=== PATIENT | male | born 1955 | race Two or more races ===

== ENCOUNTER 2025-05-13 15:22 | Emergency (ER) | payer MEDICARE, OTHER ==
[~2025-05-13] VITALS: Ht 182.9 cm; Wt 79.4 kg
[2025-05-13 17:28] LABS: PLATELET COUNT (AUTO) 412 K/uL (150-450); RED BLOOD CELL COUNT(AUTO) 5.01 MIL/uL (4.5-6.0); RED CELL DISTRIBUTION WIDTH 13.0 % (11.5-15.0); WHITE BLOOD COUNT (AUTO) 11.7 K/uL (4.3-11.0)
[2025-05-13 17:46] LABS: LACTIC ACID 2.6 mmol/L (0.4-2.0)
[2025-05-13 17:55] LABS: ASPARTATE AMINOTRANSFERASE 11 U/L (15-37); CALCIUM, SERUM 9.6 mg/dL (8.5-10.1); CREATININE 1.0 mg/dL (0.6-1.3); SODIUM SERUM 129 mmol/L (136-145); TOTAL PROTEIN, SERUM 8.2 g/dL (6.4-8.2); UREA NITROGEN, BLOOD 8 mg/dL (7-18)
[2025-05-13] MEDS: PIPERACILLIN /TAZOBACTAM 3.375 G in IV D5W 50 ML IV ONE (18:40)
[2025-05-13] MEDS: VANCOMYCIN 1 GM in IV D5W 250 ML IV ONE (19:00)
[2025-05-13 19:04] LABS: INR 0.88 (0.91-1.10)
[2025-05-13] MEDS ORDERED: HEPARIN INFUSION/D5W 500 ML IV ONE (19:17)
[2025-05-13] MEDS ORDERED: HEPARIN SODIUM, PORCINE 5000 UNITS/1 ML VIAL ONE (19:17)
[2025-05-13] MEDS ORDERED: ONDANSETRON HCL/PF 4 MG/2 ML VIAL ONE (19:17)
[2025-05-13] MEDS ORDERED: MORPHINE SULFATE INJ 4 MG/ML DISP.SYRIN ONE (19:17)
[2025-05-13] MEDS: MORPHINE SULFATE INJ 2 MG/ML DISP.SYRIN IV ONE (19:27)
[2025-05-13] MEDS: ONDANSETRON HCL/PF 4 MG/2 ML VIAL IV ONE (19:28)
[2025-05-13] MEDS: IV NS 0.9% 1,000 ML BAG IV ONE (19:37)
[2025-05-13] MEDS: HEPARIN SODIUM, PORCINE 5000 UNITS/1 ML VIAL IV ONE (20:15)
[2025-05-13] MEDS: HEPARIN INFUSION/D5W 500 ML IV ONE (20:15)
[2025-05-14 09:00] VITALS: BP 143/79; TEMP 98.9; O2SAT 98
== END 2025-05-14 10:08 | disposition short-term general hospital (02) ==
LOC: ER 15:44
DX: A41.9 Sepsis, unspecified organism (principal); R65.20 Severe sepsis without septic shock; I99.8 Other disorder of circulatory system; M79.604 Pain in right leg; R79.82 Elevated C-reactive protein (CRP); R70.0 Elevated erythrocyte sedimentation rate; M79.605 Pain in left leg; I10 Essential (primary) hypertension; E11.51 Type 2 diabetes mellitus with diabetic peripheral angiopathy without gangrene; E11.65 Type 2 diabetes mellitus with hyperglycemia; E87.20 Acidosis, unspecified; L03.115 Cellulitis of right lower limb; Z60.2 Problems related to living alone
CPT/HCPCS: 99291; 93925; 96365; 96375; 96367; 93005; 71045; 73620; 84145; 85025; 80048; 87040 ×2; 83605 ×2; 80076; 85652; 36415; 85730; 82962 ×2; 86140; J1644 ×2; J2270; J3373; J2405; J2543; J7060; J7040